=== PATIENT | female | born 1990 | race Caucasian/White ===

== ENCOUNTER 2017-05-18 13:11 | Emergency (ER) | payer OTHER ==
[~2017-05-18] VITALS: Ht 157.5 cm; Wt 66.0 kg
[2017-05-18 13:18] VITALS: BP 132/88; PULSE 120; RESP 20; O2SAT 98
--- NOTE | 2017-05-18 13:47 | ED.REPORT ---
HPI-Seizure Date of Service May 18, 2017 ED Provider: Cali Lora Patient is an otherwise healthy 27 year old female who presents to the ED via EMS for a first time, witness, tonic/clonic seizure while at a hair salon. Her seizure activity lasted approximately 5 minutes. Patient is mostly amnestic to the event but remembers feeling anxious this morning. She denies numbness, weakness, headache, neck pain, back pain, tongue pain, incontinence, or any other symptoms. She drinks about a half a bottle of wine a night. She last drank last night and has been drinking this much for the last year and a half. Patient reports increased stress lately as she finishes her bachelor's degree in the coming weeks. Nursing Notes Stated Complaint: SEIZURE Chief Complaint: Seizure Nursing Notes Reviewed: Yes Allergies: Coded Allergies: No Known Allergies (Unverified , 05/18/17) General Time Seen by Provider: 13:47 Chief Complaint Chief Complaint: Seizure, generalized Hx Obtained From: Patient Arrived By: Ambulance Onset Occurred: Just prior to arrival Symptom Duration: 1 - 15 minutes (5 min ) Immunizations: Unknown Recent Healthcare: No recent doctor visit Similar Sx Previous: No Past Medical History Past Medical History Notes: No PCP Past Medical History gestational DM Past Surgical History T&A Smoking History Unknown if Ever Smoker Social History Alcohol Use: 3-5 per day Other Social History: Good social support, Ambulatory Status Independent Review of Systems Ears / Nose / Throat: Denies: Tongue pain Musculoskeletal: Denies: Back pain, Neck pain Neurologic: Reports: Seizure, Denies: Headache, Numbness, Weakness Complete sys rev & neg: except as marked. Female: Denies: Incontinence Psychiatric: Reports: Anxiety Physical Exam Initial Vital Signs Vital Signs (First) Date Time Temp Pulse Resp B/P Pulse Ox O2 Delivery O2 Flow Rate FiO2 05/18/17 13:18 36.2 120 20 132/88 98 Room Air Initial VS: Reviewed, Vital signs abnormal Head / Eyes: Atraumatic, Normocephalic Skin: Warm, Dry General/Constitutional: Awake, Alert Behavior: Positive: Anxious Neck: Atraumatic, Supple, Full range of motion, Non-tender, No midline vertebral tend Respiratory / Chest: Atraumatic, Breath sounds NL, Breath sounds = bilat, No respiratory distress Cardiovascular: Heart rate NL, Regular rhythm, Heart sounds NL Neurologic: Oriented X3, Speech NL, No motor deficits, No sensory deficits, CN II - XII intact, Cerebellar NL ENT: Mucous membranes moist Abdomen: Atraumatic, Soft, Non-tender Psychiatric: Cognitive function NL, Judgment/insight NL, Thought content NL Abnormal Mood/Affect: Positive: Anxious Interpretation & Diagnostics Lab Results Interpretation Result Diagram: 05/18/17 1320 05/18/17 1320 Test 05/18/17 13:20 White Blood Count 7.4th/mm3 (3.8-10.1) Red Blood Count 4.52mil/mm3 (3.90-5.20) Hemoglobin 14.3g/dL (12.0-15.6) Hematocrit 41.9% (35.0-46.0) Mean Corpuscular Volume 92.7fL (81-100) Mean Corpuscular Hemoglobin 31.6pg (27.0-35.0) Mean Corpuscular Hemoglobin Concent 34.1% (32.0-37.0) Red Cell Distribution Width 11.8% (12.3-15.4) Platelet Count 213bil/L (150-400) Neutrophils (%) (Auto) 55.4% (40-74) Lymphocytes (%) (Auto) 31.7% (14-46) Monocytes (%) (Auto) 11.0% (4-12) Eosinophils (%) (Auto) 1.1% (0-5) Basophils (%) (Auto) 0.5% (0-3) Sodium Level 139mEq/L (134-144) Potassium Level 3.8mEq/L (3.5-5.2) Chloride Level 98mEq/L (97-108) Carbon Dioxide Level 16mmol/L (18-29) Blood Urea Nitrogen 12mg/dL (6-20) Creatinine 0.75mg/dL (0.57-1.00) Estimat Glomerular Filtration Rate 134mL/min (>59) Glucose Level 114mg/dL (60-99) Calcium Level 9.6mg/dL (8.5-10.1) Total Bilirubin 0.5mg/dL (0.0-1.2) Aspartate Amino Transf (AST/SGOT) 35U/L (0-50) Alanine Aminotransferase (ALT/SGPT) 36U/L (0-32) Alkaline Phosphatase 45U/L (25-150) Total Protein 7.4g/dL (6.4-8.4) Albumin 4.8g/dL (3.4-5.0) ECG Interpretation Time: 15:26 Normal ECG Interpretation: Normal ECG w/ rate of... (91), No acute ischemic changes CT Head Interpretation IMPRESSION: 1. No acute intracranial findings. Dictated by: Letha Ramsey M.D. on 05/18/2017 at 15:00 Approved by: Letha Ramsey M.D. on 05/18/2017 at 15:02 Study: Head CT no contrast Interpretation / Wet Read by: Interpret - Radiologist Re-Eval/Medical Decision Med Decision/Clinical Course 27-year-old female with 1 year long history of alcohol abuse, drinking one half bottle of wine per night, presents after having seizure-like activity lasting about 7 minutes at her hairdresser's appointment. I contacted the hairdresser who witnessed the event andthat she fell back and became stiff. Her hands were shaking and later her feet started shaking. She was drooling and her teeth were clenched. They estimate it lasted about 7 minutes. The patients last drink was last night. Upon arrival here she does not appear post ictal. She did not lose continence of bowel or bladder and did not bite her tongue. She appears anxious on exam. Patient admits to history of alcoholism in her family. Notes that she is undergoing significant stress with school. She is afebrile, vitals are normal, EKG is unremarkable for acute changes, her head CT is normal , and her labs are normal other than mild elevation of her liver function. I discussed these findings with Dr. Hernadez who recommended she not drive for the next 6 months and that she follow-up with a PCP, and potentially a neurologist is Dr. eagle. I discussed these plans with the patient and she is agreeable. I advised her to stop all alcohol use, and use Ativan as needed for shakiness. It is difficult to say if this is all related to alcohol or if there is another neurologic process, but her evaluation here it is safe for her to go home with the above treatment plan. Re-Evaluation/Progress #1: Time of Eval: 15:09 Re-Evaluation/Progress Note: Called facility where pt had the seizure. Patient fell to the floor, become stiff, her eyes rolled back, her teeth were clenched, and her hands and feet were shaking. Re-Evaluation/Progress #2: Time of Eval: 15:18 )( Re-Eval Neurologic Exam: Alert Re-Evaluation/Progress Note: Discussed plan for discharge. Patient understands and agrees with plan. All questions addressed at this time. Consultation : Referral / Consult Name: JamiebernardEladio MD Consulted With: Neurology Call Returned at: 15:11 Note: Discussed pt's case. No driving 6 mo, F/U with PCP. Counseled Regarding: Diagnosis, Lab results, Need for follow-up, When/why to return to ED Discharge & Departure Impression: Primary Impression: Seizure-like activity Additional Impressions: Anxiety Alcohol abuse Disposition: Home Discharge Condition All VS Reviewed: Yes Condition: Stable Patient Instructions: Abuse of Alcohol (ED), New-Onset Seizure in Adults (ED) Additional Instructions: Thank you for entrusting us with your care. Your CT, labs, and examination are reassuring. We did not find a dangerous cause for your symptoms at this time. I discussed your case with a neurologist. He recommends you do not drive for 6 months and that your follow up with a primary doctor. You will need further evaluation by a neurologist in the future. Call the [facility] via the number provided to establish primary care. Take Ativan as prescribed for anxiety and shakiness. Refrain from drinking alcohol. DO NOT mix Ativan and alcohol. Return to the emergency department for new or worsening symptoms. Referrals: [facility] Attestation Portions of this note were transcribed by Dwain Garrett. I, Dr. Lora personally performed the history, physical exam and medical decision-making; I reviewed and confirmed the accuracy of the information in the transcribed note. Signed by: Too Ashraf, 05/18/17 copies to: [facility] Fausto Lora DO May 18, 2017 13:47 DWAIN GARRETT May 18, 2017 14:17
[2017-05-18] MEDS ORDERED: 0.9% Sodium Chloride 1,000 ML IV ONE (14:15)
[2017-05-18 14:30] LABS: BASOPHILS % (AUTO) 0.5 % (0-3); EOSINOPHILS % (AUTO) 1.1 % (0-5); Mean Corpuscular Hemoglobin 31.6 pg (27.0-35.0); Mean Corpuscular Volume 92.7 fL (81-100); NEUTROPHILS % (AUTO) 55.4 % (40-74); Platelet Count 213 bil/L (150-400)
--- NOTE | 2017-05-18 15:03 | DRSVH ---
PROCEDURE: CT BRAIN WITHOUT CONTRAST ([id number]) INDICATIONS: new onset seizure TECHNIQUE: Noncontrast 4.5 mm thick angled axial sections acquired from the foramen magnum to the vertex, with c oronal reformats. COMPARISON: None. FINDINGS: Image quality: Excellent. CSF spaces: Basal cisterns are patent. No extra-axial fluid collections. Ventricles are normal in size and shape. Brain: No midline shift. No intracranial masses or hemorrhage. Shields-white matter interface is norm al. Skull and face: Calvarium and visualized facial bones are intact, without suspicious lesions. Sinuses: Visualized sinuses and mastoids are clear. IMPRESSION: 1. No acute intracranial findings. Dictated by: Letha Ramsey M.D. on 05/18/2017 at 15:00 Approved by: Letha Ramsey M.D. on 05/18/2017 at 15:02
[2017-05-18] MEDS ORDERED: LORA-303 PO (15:58)
[2017-05-18 16:09] VITALS: BP 112/71; PULSE 94; RESP 16; O2SAT 99
[2017-05-18 16:11] LABS: APPEARANCE,URINE CLEAR (CLEAR,HAZY); COLOR,URINE YELLOW (YELLOW); OCCULT BLOOD,URINE NEGATIVE (NEGATIVE); UROBILINOGEN,URINE NORMAL (NORMAL)
== END 2017-05-18 16:10 | disposition home or self-care (01) ==
LOC: SED 13:11 → EDBD 13:11 → SED 16:10
DX: R56.9 Unspecified convulsions (principal); F41.9 Anxiety disorder, unspecified; F10.10 Alcohol abuse, uncomplicated
CPT/HCPCS: 36415; 70450; 80053; 81001; 82948; 85025; 93005; 96361; 96374; 99285; J2060; J7030